=== PATIENT | female | born 1965 | race African-American/Black ===

== ENCOUNTER → 2016-05-13 17:05 | Outpatient (CLI) | payer MEDICARE | END | disposition home or self-care (01) | LOC: D.MAMMO 05-02 11:30 | DX: Z12.31 Encounter for screening mammogram for malignant neoplasm of breast (principal) ==

== ENCOUNTER → 2016-08-30 09:54 | Outpatient (CLI) | payer MEDICARE | END | disposition home or self-care (01) | LOC: D.MRI 09:54 | DX: M54.12 Radiculopathy, cervical region (principal) ==

== ENCOUNTER → 2016-09-26 09:50 | Outpatient (CLI) | payer MEDICARE ==
--- NOTE | ~2016-09-26 | EEG ---
PATIENT:CHICHI LIZARRAGA DATE OF SERVICE: 09/26/16 MEDICAL RECORD: [id number] DATE OF : 67 LOCATION: [facility] ADMISSION DATE: 09/26/16 REFERRING PHYSICIAN: INTERPRETING PHYSICIAN: NIK ZHONG MD DATE OF SERVICE: 09/26/2016 Referred by myself as an outpatient. ELECTROENCEPHALOGRAM NUMBER: [id number]. DATE OF EXAMINATION: 09/26/2016 at 10:50 a.m. TECHNICAL DATA: This electroencephalographic recording consists of approximately 20 minutes of data collection utilizing the international 10/20 system of electrode placement and both referential and non-referential montages. Sixteen channels of electrocerebral recording are accompanied by a 17th channel dedicated to the electrocardiographic rhythm and to 2 channels of electromyographic recording. Recording is performed in the awake and drowsy states utilizing activation by photic stimulation. Hyperventilation is attempted, but the patient is not able to complete. ELECTROENCEPHALOGRAPHIC DATA: The awake state comprises approximately 70% of the recorded electrocerebral activity. Electromyographic artifact is prominent and rapid eye movements are seen. The posterior dominant background consists of a well-developed, symmetric, rhythmic, waxing and waning alpha activity of 10-11 Hz, which is suppressed by eye opening. The drowsy state comprises the remaining portion of the recorded electrocerebral activity. Electromyographic artifact is only mildly diminished. Rapid eye movements are not seen. The posterior dominant background is suppressed. A single sharp wave with a minor after going slow component is observed in the right temporal region, maximal on this scalp recording at T4 and T6. Photic stimulation induces no abnormal change in the recorded electrocerebral activity. INTERPRETATION: Sharp waves, focal, right temporal (awake and drowsy). This electroencephalographic recording is indicative of an epileptogenic focus of right temporal origin, maximal on this scalp recording at T4 and T6. TRANSINT:[id number] Voice Confirmation ID: [id number] DOCUMENT ID: [id number] NIK ZHONG MD CC: [id number] DICTATION DATE: 09/27/1659 NNPS: 09/27/16 [id number] DEP CLI 09/26/16 [facility] [address] [place] [address]
== END | disposition home or self-care (01) ==
LOC: D.CN 09-23 10:00
DX: R55 Syncope and collapse (principal)

== ENCOUNTER → 2018-01-04 16:39 | Outpatient (CLI) | payer MEDICARE | END | disposition home or self-care (01) | LOC: D.MAMMO 12-06 11:30 | DX: Z12.31 Encounter for screening mammogram for malignant neoplasm of breast (principal) ==

== ENCOUNTER 2019-03-22 10:00 | Outpatient (CLI) | payer MEDICARE | END 2019-03-22 11:00 | disposition home or self-care (01) | LOC: D.MAMMO 10:00 | PROVIDERS: ATTEND Family Medicine | DX: N63.10 Unspecified lump in the right breast, unspecified quadrant (principal) ==